=== PATIENT | male | born 1975 | race Caucasian/White ===

== ENCOUNTER 2018-02-14 07:51 | Emergency (ER) | payer OTHER ==
[~2018-02-14] VITALS: Ht 188 cm; Wt 90.7 kg
[~2018-02-14 07:51] MED LIST: ADDERALL XR 2525 MG PO; ALPRAZOLAM2 M1 PO; COLACE100 MG PO; DOLOPHINE HCL10 MG PO; FLOMAX0.4 MG PO; GABAPENTIN600 M1 PO; MAGOX 400400 MG PO; MELATONIN3 MG PO; MILK THISTLE200 M1 PO; OXYCONTIN15 MG PO; VALIUM5 MG PO
[2018-02-14 08:37] VITALS: BP 103/76
== END 2018-02-14 09:11 | disposition home or self-care (01) ==
LOC: ER 07:51
DX: J06.9 Acute upper respiratory infection, unspecified (principal); F31.9 Bipolar disorder, unspecified; F98.8 Other specified behavioral and emotional disorders with onset usually occurring in childhood and adolescence; Z88.8 Allergy status to other drugs, medicaments and biological substances; Z88.5 Allergy status to narcotic agent; Z88.6 Allergy status to analgesic agent; Z88.0 Allergy status to penicillin

== ENCOUNTER 2019-02-25 07:30 | Emergency (ER) | payer OTHER ==
[~2019-02-25] VITALS: Ht 188 cm; Wt 97.5 kg
[2019-02-25 09:55] VITALS: BP 110/74
== END 2019-02-25 09:59 | disposition home or self-care (01) ==
LOC: ER 07:30
DX: S92.321A Displaced fracture of second metatarsal bone, right foot, initial encounter for closed fracture (principal); S92.331A Displaced fracture of third metatarsal bone, right foot, initial encounter for closed fracture; S92.341A Displaced fracture of fourth metatarsal bone, right foot, initial encounter for closed fracture; S92.351A Displaced fracture of fifth metatarsal bone, right foot, initial encounter for closed fracture; F31.9 Bipolar disorder, unspecified; F90.9 Attention-deficit hyperactivity disorder, unspecified type; Z98.890 Other specified postprocedural states; Z88.5 Allergy status to narcotic agent; Z88.0 Allergy status to penicillin; Z88.6 Allergy status to analgesic agent; Z88.8 Allergy status to other drugs, medicaments and biological substances; W18.39XA Other fall on same level, initial encounter; Y92.89 Other specified places as the place of occurrence of the external cause; Y93.89 Activity, other specified; Y99.8 Other external cause status